=== PATIENT | female | born 1975 | race Caucasian/White ===

== ENCOUNTER 2019-05-11 08:41 | Emergency (ER) | payer OTHER, SELFPAY ==
--- NOTE | ~2019-05-11 | XR_ITS ---
EXAMINATION: XR chest 2V DATE: 05/11/2019 09:51 INDICATION: Left chest pain. TECHNIQUE: Frontal and lateral views of the chest were obtained. COMPARISON: None. FINDINGS: There is no pneumonia, pleural effusion, or pneumothorax. The heart size is normal. There a re surgical clips in left abdomen. IMPRESSION: 1. No acute cardiopulmonary disease. Reviewed, dictated and finalized at location A. ENGINE OPERATOR
--- NOTE | 2019-05-11 08:40 | ECG_ITS ---
Measurements Intervals [place] Rate: 78 P: 61 NE: 129 QRS: 4 QRSD: 102 T: 44 QT: 392 QTc: 449 Interpretive Statements SINUS RHYTHM WITH SINUS ARRHYTHMIA NORMAL ECG Electronically Signed On 05-11-2019 9:02:06 [employer] by Leonel Bae D.O.
[2019-05-11 08:44] VITALS: BP 135/82; PULSE 77; RESP 15; TEMP 37.2; O2SAT 100
[2019-05-11 08:50] VITALS: PULSE 79
[2019-05-11] MEDS: Please add drug allergy info to patient profile. 1 EACH XX (09:32)
[2019-05-11] MEDS: KETOROLAC 30 MG/ML VIAL (*BKC) IV PUSH (09:32)
[2019-05-11 09:56] VITALS: BP 131/60; PULSE 80; RESP 16; O2SAT 98
--- NOTE | 2019-05-11 09:58 | ED.GENADULT ---
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 . Patient has not had anything else for her symptoms and denies similar occurrence is noted and on arrival is resting comfortably in the room in no distress Related Data Allergies Allergy/AdvReac Type Severity Reaction Status Date / Time No Known Allergies Allergy Verified 05/11/19 09:31 Review of Systems Review of Systems: Narrative: CONSTITUTIONAL: Denies fever, chills, or sweats. EYES: Denies redness, or discharge. ENT: Denies rhinorrhea, congestion, sore throat, or otalgia. CARDIOVASCULAR: Denies palpitations, or edema. RESPIRATORY: Denies cough or dyspnea. GASTROINTESTINAL: Denies abdominal pain, nausea, vomiting, or diarrhea. GENITOURINARY: Denies dysuria or hematuria. SKIN: Denies rash or itching. MUSCULOSKELETAL: Denies back pain, joint pain NEUROLOGIC: Denies headache, dizziness, or weakness. [facility] Past Medical History Medical History (Updated 05/11/19 @ 12:47 by Mike Anne PA-C) Anxiety Surgical History Surgical History History of appendectomy Hx of cholecystectomy Personal hx of gastric bypass Social History Social History Smoking status: Current every day smoker Gender identity (if verbalized by the patient): Female Exam Narrative: Exam Narrative: GENERAL: Well-appearing, well-nourished, and in no acute distress. HEAD: Normocephalic, atraumatic. EYES: PERRLA and EOMI. ENT: Nares clear, no rhinorrhea or epistaxis. Mucous membranes moist. Oropharynx without tonsillar hypertrophy exudate or other lesions. CHEST: Clear to auscultation. No respiratory distress. No wheezes rales or rhonchi HEART: Regular rate and rhythm. No murmur heard. Normal peripheral pulses. ABDOMEN: Soft, nontender, nondistended EXTREMITIES: Normal range of motion. No edema. SKIN: Warm, dry, no rash. NEURO: No focal deficits. Alert and oriented x3. Cranial nerves II through XII grossly intact PSYCH: Normal mood and affect. Course Course Emergency Course: Patient in the room at this time aware of case findings treatment plan and diagnosis resting comfortably in the room in no distress agreeing to follow-up as directed noted improvement with medication Vital Signs Vital signs: Vital Signs Temperature 98.9 F 05/11/19 08:44 Pulse Rate 77 05/11/19 08:44 Respiratory Rate 15 05/11/19 08:44 Blood Pressure 135/82 05/11/19 08:44 Pulse Oximetry 100 05/11/19 08:44 Temperature 98.9 F 05/11/19 08:44 Pulse Rate 70 05/11/19 11:36 Respiratory Rate 15 05/11/19 11:36 Blood Pressure 106/49 L 05/11/19 11:36 Pulse Oximetry 99 05/11/19 11:36 Medical Decision Making MDM Narrative Medical decision making narrative: Patients EKGs and labs are without significant high risk changes. Cardiac risk factors were reviewed. Patient is felt likely to be low risk for ACS and reasonable for further risk stratification testing as an outpatient. Pain was not sudden or maximal in onset without tearing or ripping. quality. No other signs or symptoms to suggest aortic dissection. A low-risk Wells criteria is noted. PE is felt to be unlikely. No pneumonia or URI symptoms were seen on evaluation today. Patient is felt to be reasonable for continued evaluation as an outpatient. Vital
[2019-05-11 10:10] LABS: Basophils Absolute Auto 0.1 K/mm3 (0.0-0.1); Basophils Percent Auto 0.5 % (0.2-1.2); Eosinophils Absolute Auto 0.1 K/mm3 (0-0.3); Eosinophils Percent Auto 0.8 % (0-4.4); Hemoglobin 11.4 g/dL (12.0-15.0); Immature Granulocyte Absolute 0.04 K/mm3 (0.00-0.031); Immature Granulocyte Percent A 0.4 % (0-0.5); Lymphocytes Absolute Auto 2.12 K/mm3 (0.9-3.2); Lymphocytes Percent Auto 20.6 % (18.3-44.2); Mean Corpuscular HGB Conc 31.7 g/dl (32-36); Mean Corpuscular Hemoglobin 27.3 pg (26-34); Mean Corpuscular Volume 86.1 fl (80-100); Monocytes Absolute Auto 0.9 K/mm3 (0.1-0.6); Monocytes Percent Auto 8.4 % (2.6-8.5); Neutrophils Absolute Auto 7.1 K/mm3 (1.3-6.7); Neutrophils Percent Auto 69.3 % (45.5-73.1); Platelet Count Result 388 k/mm3 (150-375); Red Blood Count 4.18 M/mm3 (4.2-5.4); Red Cell Distribution Width 16.3 % (11.5-14.5); White Blood Count 10.3 K/mm3 (4.5-10.0)
[2019-05-11 10:19] LABS: INR 0.9; Prothrombin Time 11.9 Seconds (11.1-14.7)
[2019-05-11 10:20] LABS: Partial Thromboplastin Time 23.5 SECONDS (22.3-36.8)
[2019-05-11 10:22] LABS: Blood Urea Nitrogen 7 mg/dL (7-17); Calcium 9.3 mg/dL (8.4-10.2); Carbon Dioxide 25 mmol/L (22-30); Chloride 106 mmol/L (98-107); Estimated CRCL calculation 115 ml/min; Estimated Glomerular Filt Rate > 60; Glucose 88 mg/dL (65-105); Potassium 3.9 mmol/L (3.4-5.0); Sodium 138 mmol/L (137-145)
[2019-05-11 10:32] VITALS: BP 129/68; PULSE 70; RESP 14; O2SAT 99
[2019-05-11 10:33] LABS: Troponin I < 0.012 ng/mL (0.000-0.034)
[2019-05-11 11:36] VITALS: BP 106/49; PULSE 70; RESP 15; O2SAT 99
[2019-05-11 12:43] LABS: Troponin I < 0.012 ng/mL (0.000-0.034)
[2019-05-11 13:08] VITALS: BP 134/78; PULSE 75; RESP 16; O2SAT 100
== END 2019-05-11 13:10 | disposition home or self-care (01) ==
PROVIDERS: Emergency Medicine Emergency Medical Services; Emergency Provider Emergency Medicine
DX: R07.89 Other chest pain (principal); Z98.84 Bariatric surgery status; F17.200 Nicotine dependence, unspecified, uncomplicated
CPT/HCPCS: 36415; 71046; 80048; 84484; 85025; 85610; 85730; 93005; 96374; 99284; J1885

== ENCOUNTER 2019-12-08 12:18 | Outpatient (CLI) | payer OTHER, SELFPAY ==
[2019-12-08 23:57] LABS: SARS-CoV-2 RNA PCR Negative
== END 2019-12-08 12:19 | disposition home or self-care (01) ==
LOC: CHSLAB 12:20
PROVIDERS: PCP Internal Medicine; Visit Provider Internal Medicine
DX: Z20.828 Contact with and (suspected) exposure to other viral communicable diseases (principal)
CPT/HCPCS: 87635; C9803; U0003

== ENCOUNTER 2020-04-05 09:16 | Outpatient (CLI) | payer OTHER, SELFPAY ==
[2020-04-05 10:01] LABS: SARS-CoV-2 Ag Negative (Negative)
== END 2020-04-05 09:17 | disposition home or self-care (01) ==
LOC: CHSLAB 09:20
PROVIDERS: PCP Internal Medicine; Visit Provider Internal Medicine
DX: Z20.828 Contact with and (suspected) exposure to other viral communicable diseases (principal)
CPT/HCPCS: 87426

== ENCOUNTER 2020-05-31 10:48 | Outpatient (CLI) | payer OTHER, SELFPAY ==
--- NOTE | ~2020-05-31 | XR_ITS ---
XR hip RT min 2V DATE: 05/31/2020 11:04 INDICATION: Right hip pain for 10 days TECHNIQUE: AP and lateral views COMPARISON: None FINDINGS: No fracture, dislocation, avascular necrosis or bone destruction. Right hip joint space stephanie ears well preserved. Incidentally noted is an IUD overlying the mid pelvis. The pubic symphysis and sacroiliac joints appear intact. IMPRESSION: Negative right hip Reviewed, dictated and finalized at location A. STRAIGHTENER IMPRESSION: Negative right hip
--- NOTE | ~2020-05-31 | XR_ITS ---
XR lumbar spine 2-3V DATE: 05/31/2020 11:04 INDICATION: Low back pain and hip pain for 10 days. No known injury. TECHNIQUE: AP, lateral, coned lateral lumbosacral views COMPARISON: None FINDINGS: There is levoscoliosis of the thoracolumbar spine. There is diffuse osteopenia. There is prominent degenerative change at the apophyseal joints in the mid and lower lumbar/lumbosacr al area, with associated grade 1 anterolisthesis at L4-5. There is moderately severe degenerative disc disease at L5-S1. No fracture or bone destruction is evident. The sacral iliac joints are normal. IUD overlies the central pelvic area. IMPRESSION: Osteopenia Levoscoliosis Degenerative change of the facet joints with associated grade 1 anterolisthesis at L4-5 Moderately severe degenerative disc disease at L5-S1 Reviewed, dictated and finalized at location A. DIRECTOR
== END 2020-05-31 10:49 | disposition home or self-care (01) ==
LOC: CHSLAB 10:50
PROVIDERS: PCP Internal Medicine; Visit Provider Internal Medicine
DX: M54.5 Low back pain (principal); M25.551 Pain in right hip
CPT/HCPCS: 72100; 73502

== ENCOUNTER 2020-09-06 12:15 | Outpatient (CLI) | payer OTHER, SELFPAY ==
--- NOTE | ~2020-09-06 | XR_ITS ---
XR ribs RT 2V DATE: 09/06/2020 12:44 INDICATION: Posterior lower right rib pain after Heimlich maneuver 3 days ago TECHNIQUE: PA and lateral chest. 3 views of the right ribs COMPARISON: None FINDINGS: No displaced rib fracture is evident. The lungs are normally expanded and clear of infiltrate or consolidation. No pleural effusion or pulm onary vascular congestion or pneumothorax. Normal heart size. No hilar or mediastinal enlargement. Surgical clips overlie the abdomen. IMPRESSION: No evidence of displaced rib fracture or pneumothorax or pleural effusion Reviewed, dictated and finalized at location A. IMPRESSION: No evidence of displaced rib fracture or pneumothorax or pleural ef fusion
== END 2020-09-06 12:16 | disposition home or self-care (01) ==
LOC: CHSLAB 12:17 → CHSIMG 12:19
PROVIDERS: PCP Internal Medicine; Visit Provider Nurse Practitioner Family
DX: R07.81 Pleurodynia (principal)
CPT/HCPCS: 71100

== ENCOUNTER 2021-12-12 07:01 | Emergency (ER) | payer OTHER, SELFPAY ==
[2021-12-12] VITALS (7 sets, daily range): BP systolic 120–162; BP diastolic 54–89; PULSE 80–104; RESP 16; TEMP 36.2; O2SAT 97–100
--- NOTE | ~2021-12-12 | CT_ITS ---
EXAMINATION: CT abdomen pelvis w con DATE: 12/12/2021 08:19 INDICATION: Right upper quadrant abdominal pain. Nausea. TECHNIQUE: Computed tomography (CT) of the abdomen and pelvis was performed with 100 mL Omnipaque 350 intravenous contrast. Automated exposure control and iterative reconstruction technique were employe d. The dose-length product was 516.70 mGy-cm. COMPARISON: CT abdomen and pelvis 09/13/2009 FINDINGS: The visualized portions of the lung bases demonstrate mild atelectasis. No pleural effusion . The heart size is normal. No pericardial effusion. There are surgical changes of the stomach. The l iver and spleen are normal. The gallbladder is absent. The pancreas, adrenal glands, and kidneys are normal. There is an intrauterine device in expected position. There are no dilated loops of bowel. Th ere are changes of appendectomy. There are no pathologically enlarged lymph nodes. There is no free i ntraperitoneal fluid. There is severe thoracic and lumbar spondylosis. There is mild chronic anterior wedging of T11 vertebral body. IMPRESSION: 1. No etiology for the patient's symptoms. Reviewed, dictated and finalized at location A.
--- NOTE | 2021-12-12 07:04 | ED.ABDPAIN ---
HPI - Abdominal Pain General Chief Complaint: Abdominal Pain Stated Complaint: flank pain Time Seen by Provider: 12/12/21 07:03 Source: patient and RN notes reviewed Mode of arrival: ambulatory Limitations: no limitations History of Present Illness MD elicited complaint: abdominal pain Pertinent past history: none Onset (ago): day(s) (6) Pain Consistency: intermittent Location: RUQ Severity: moderate Quality: cramping and burning Radiation: none Migration to: no migration Exacerbating factors: eating Relieving factors: nothing Associated symptoms: nausea Related Data Allergies Allergy/AdvReac Type Severity Reaction Status Date / Time No Known Allergies Allergy Verified 12/12/21 07:11 Review of Systems Review of Systems: All systems reviewed & are unremarkable except as noted in HPI and below Constitutional: Constitutional: Denies chills and Denies fever(s) Cardiovascular: Cardiovascular: Denies chest pain Respiratory: Respiratory: Denies cough and Denies dyspnea Gastrointestinal: Gastrointestinal: Denies constipation, Denies diarrhea and Denies vomiting Genitourinary: Genitourinary: Denies nocturia and Denies dysuria [facility] Past Medical History Medical History Anxiety Surgical History Surgical History History of appendectomy Hx of cholecystectomy Personal hx of gastric bypass Social History Social History Smoking status: Current every day smoker Gender identity (if verbalized by the patient): Female Exam Const: General: healthy appearing, no acute distress and alert Nutritional Appearance: well nourished Orientation/consciousness: patient oriented x3 Limitations: no limitations HENMT: Head: normal to inspection Ears: external ears normal Eyes: Conjunctivae: conjunctivae normal Pupils: Equal, round and reactive pupils present EOM: EOMs intact bilaterally Neck: Neck: normal visual inspection Resp: Effort & Inspection: normal respiratory effort Auscultation: clear to auscultation bilaterally Cardio: Rate: regular rate Rhythm: regular rhythm GI: GI Palp: Yes Soft to palpation, Yes Tenderness to palpation present (GI) (Moderate right upper quadrant), Yes Guarding due to palpation present (GI) ( moderate right upper quadrant) and No Rebound tenderness present Auscultation: normal bowel sounds Back/Spine/Pelvis: Cervical Spine: cervical ROM normal Thoracic/Lumbar Spine: thoraco-lumbar ROM normal Skin: General skin exam: normal color Rashes: no rashes Neuro: General: patient oriented x3, moves all extremities, no focal motor deficits and CN's II-XI intact bilaterally Speech: normal speech Gait exam (Neuro): Normal gait present Extrem: General: normal to inspection and no clubbing, cyanosis or edema Psych: Mental Status: mental status grossly normal Affect: normal affect Attitude: cooperative Course Vital Signs Vital signs: Vital Signs Temperature 36.2 C L 12/12/21 07:05 Pulse Rate 104 H 12/12/21 07:05 Respiratory Rate 16 12/12/21 07:05 Blood Pressure 162/89 H 12/12/21 07:05 Pulse Oximetry 100 12/12/21 07:05 Oxygen Delivery Room Air 12/12/21 07:05 Temperature 36.2 C L 12/12/21 07:05 Pulse Rate 80 12/12/21 08:50 Respiratory Rate 16 12/12/21 08:50 Blood Pressure 120/60 12/12/21 08:50 Pulse Oximetry 98 12/12/21 08:50 Oxygen Delivery Room Air 12/12/21 08:50 MDM - Abdominal Pain Differential Diagnosis Differential diagnosis: Likely abdominal pain, acute appendicitis, calculus of kidney, diverticulitis and small bowel obstruction Lab Data Attestation: I reviewed the patient's lab results. Result diagrams: 12/12/21 07:22 12/12/21 07:22 Labs: Lab Results 12/12/21 12/12/21 12/12/21 Range/Units 07:07 07:07 07:22 WBC 7.9 (4.8-10.8) K/mm3 R
[2021-12-12 07:29] LABS: Basophils Absolute Auto 0.03 K/mm3 (0.00-0.10); Basophils Percent Auto 0.4 % (0.0-1.0); Eosinophils Absolute Auto 0.08 K/mm3 (0.02-0.50); Hematocrit 32.5 % (35.0-49.0); Hemoglobin 10.3 g/dL (12.0-15.0); Immature Granulocyte Absolute 0.03 K/mm3 (0.00-0.00); Immature Granulocyte Percent A 0.4 % (0.0-0.0); Lymphocytes Absolute Auto 1.45 K/mm3 (1.10-4.50); Lymphocytes Percent Auto 18.5 % (18.0-42.0); Mean Corpuscular HGB Conc 31.7 g/dL (32.0-36.0); Mean Corpuscular Hemoglobin 25.2 pg (27.0-31.0); Mean Corpuscular Volume 79.7 fL (78.0-102.0); Mean Platelet Volume 8.7 fl (9.2-11.8); Monocytes Absolute Auto 0.68 K/mm3 (0.10-0.90); Monocytes Percent Auto 8.7 % (2.0-11.0); Neutrophils Absolute Auto 5.6 K/mm3 (1.7-7.2); Platelet Count Result 413 K/mm3 (150-420); Red Blood Count 4.08 M/mm3 (4.20-5.40); Red Cell Distribution Width 18.3 % (11.6-14.4); White Blood Count 7.9 K/mm3 (4.8-10.8)
[2021-12-12 07:32] LABS: Add Urine Microscopic? YES; Appearance Urine Clear (Clear); Bilirubin Urine Negative (Negative); Blood Urine Negative (Negative); Color Urine Yellow (Yellow); Glucose Urine UA Negative (Negative); Ketones Urine Trace (Negative); Leukocyte Esterase Ur 1+ LEU/UL (Negative); Nitrate Urine Negative (Negative); Protein Urine Negative (Negative); Specific Grav Ur 1.025 (1.010-1.020); Urobilinogen Urine 0.2 mg/dL (0.2-1.0)
[2021-12-12 07:38] LABS: RBC Urine None seen /hpf (0-2); Squamous Epithelial Cell Urine Few /hpf (Few)
[2021-12-12 07:39] LABS: Bacteria Urine 2+ /hpf; Mucus Urine Few /lpf
--- NOTE | 2021-12-12 07:39 | PC.NURSE ---
PT IS SITTING ON STRETCHER IN EXAM ROOM, UPON ERP EXAM PT NOTED TO BE TENDER UPON PALPATION TO RUQ. PT REPORTS POST EXAM, THE BURNING HAS RETURNED. PT IS AWAITING RESULTS AT THIS TIME, WATCHING TV WITHOUT DISTRESS. WILL CONTINUE TO MONITOR.
[2021-12-12 07:44] LABS: Pregnancy On Board Control Positive; Urine Pregnancy Test Negative
[2021-12-12 07:46] LABS: Alanine Aminotransferase 18 U/L (14-59); Albumin Level 3.6 g/dL (3.4-5.0); Alkaline Phosphatase 76 U/L (46-116); Anion Gap 10 mmol/L (8-16); Aspartate Amino Transferase 21 U/L (15-37); Bilirubin,Total 0.5 mg/dL (0.00-1.00); Blood Urea Nitrogen 8 mg/dL (7-18); CRP < 0.2 mg/dL (0.0-0.9); Carbon Dioxide 25 mmol/L (21-32); Chloride 101 mmol/L (98-108); Estimated CRCL calculation 81 ml/min; Estimated Glomerular Filt Rate > 60; Glucose 94 mg/dL (70-99); Osmolality Calculated 280 mOsm/kg (285-295); Potassium 4.2 mmol/L (3.5-5.1); Sodium 136 mmol/L (136-145); Total Protein 7.1 g/dL (6.4-8.2)
[2021-12-12 07:59] LABS: Lactic Acid Reflex 1.1 mmol/L (0.4-2.0)
--- NOTE | 2021-12-12 08:34 | PC.NURSE ---
PT RETURNED FROM CT, AMBULATORY TO RR WITHOUT DISTRESS. MOTHER HAS ARRIVED AND IS AT BEDSIDE. NAD NOTED. PT DENIES ANY NEEDS OR COMPLAINTS. WARM BLANKET WAS PROVIDED. PT IS AWAITING CT RESULTS AT THIS TIME. WILL CONTINUE TO MONITOR.
--- NOTE | 2021-12-16 00:24 | PC.NURSE ---
FINAL URINE CULTURE REPORTS GREATER THAN 100,000 CFU/ML OF E. COLI. PT WAS PLACED ON BACTRIM DS, PER DR BARGER, NO FURTHER TREATMENT NEEDED.
== END 2021-12-12 08:50 | disposition home or self-care (01) ==
PROVIDERS: Emergency Provider Emergency Medicine; PCP Internal Medicine
DX: R10.11 Right upper quadrant pain (principal); N30.00 Acute cystitis without hematuria
CPT/HCPCS: 36415; 74177; 80053; 81001; 81025; 83605; 85025; 86140; 87077; 87086; 87088; 87186; 99284; Q9967